=== PATIENT | male | born 1950 | race Caucasian/White ===

== ENCOUNTER → 2016-12-10 | Outpatient (REF) | payer MEDICARE | LOC: M SFHCLERA 12:01 | PROVIDERS: ATTEND Nurse Practitioner Family | DX: R30.0 Dysuria (principal) | CPT/HCPCS: 81002; 87088; 87186; G0463 ==

== ENCOUNTER 2020-12-31 17:50 | Inpatient (IN) | payer MEDICARE ==
[~2020-12-31] VITALS: Ht 170.2 cm; Wt 105.2 kg
[2020-12-31] MEDS ORDERED: ONDANSETRON 4MG/2ML VIAL IV ONE (18:05)
[2020-12-31] MEDS ORDERED: MORPHINE 4 MG/ML 1ML VIAL/SYRINGE (J2270) IV ONE (18:05)
[2020-12-31] MEDS ORDERED: HYDROMORPHONE HCL 0.5 MG/ 0.5 ML SYRINGE (J1170 PER 1) IV ONE ×2 (18:30→20:20)
--- NOTE | 2020-12-31 18:48 | REP ---
INDICATION: blunt trauma. COMPARISON: None. TECHNIQUE: AP supine portable chest x-ray: Single view. FINDINGS: There is an area of pleural thickening along the left lateral chest wall. This implies subpleural hematoma. There is extra thoracic soft tissue swelling along the left lateral chest wall as well and there is a small focus of subcutaneous air in the extra thoracic soft tissues. If the overlying skin is intact, this air implies barotrauma the lungs. No pneumothorax is visible radiographically. There is a transversely oriented fracture involving the left anterior 7th rib. Posterior rib fractures are seen involving the left 5th, ribs. 7th, 8th, 9th, 10th thoracic aorta is calcific and somewhat tortuous. Heart is enlarged. The right lung is well inflated and free of infiltrate. IMPRESSION: Multiple displaced left-sided rib fractures. Subpleural and extra thoracic soft tissue swelling along the left lateral chest wall. Soft tissue emphysema implies barotrauma to the left lung. No pneumothorax visible on plain chest x-ray. <Electronically signed by Alvino Collier > 12/31/20 [id number]
[2020-12-31 18:59] LABS: BASO # 0.1 10^3/uL (0.0-0.2); BASO % 0.6 % (0.0-1.0); EOS # 0.2 10^3/uL (0.0-0.5); EOS % 1.1 % (0.0-3.0); HEMATOCRIT 43.8 % (42.0-52.0); HEMOGLOBIN 14.5 g/dl (13.5-17.5); LYMPH # 3.8 10^3/uL (1.5-5.0); LYMPH % 18.8 % (24.0-44.0); MEAN CORPUSCULAR HEMOGLOBIN 30.3 pg (27.0-33.0); MEAN CORPUSCULAR HGB CONC 33.1 g/dl (32.0-36.5); MEAN CORPUSCULAR VOLUME 91.4 fl (80.0-96.0); MONO # 0.8 10^3/uL (0.0-0.8); NEUTROPHILS # 15.2 10^3/uL (1.5-8.5); NEUTROPHILS % 74.6 % (36.0-66.0); PLATELET COUNT, AUTOMATED 277 10^3/uL (150-450); RED BLOOD COUNT 4.79 10^6/uL (4.30-6.10); WHITE BLOOD COUNT 20.4 10^3/uL (4.0-10.0)
[2020-12-31] MEDS ORDERED: POTA1TAB23 PO ×2 (19:01→20:52)
[2020-12-31] MEDS ORDERED: ASPI81CH33 PO (19:01)
[2020-12-31] MEDS ORDERED: IRBE300T7 PO (19:01)
[2020-12-31] MEDS ORDERED: DILT240C83 PO (19:01)
--- NOTE | 2020-12-31 19:02 | REPVR ---
PROCEDURE INFORMATION: Exam: CT Lumbar Spine Without Contrast Exam date and time: 12/31/2020 6:35 PM Age: 70 years old Clinical indication: Injury or trauma; Fall; Blunt trauma (contusions or hematomas) TECHNIQUE: Imaging protocol: Computed tomography images of the lumbar spine without contrast. Radiation optimization: All CT scans at this facility use at least one of these dose optimization techniques: automated exposure control; mA and/or kV adjustment per patient size (includes targeted exams where dose is matched to clinical indication); or iterative reconstruction. COMPARISON: CT ABD PELVIS W/O CONTRAST 11/27/2014 9:49 AM FINDINGS: Vertebrae: No acute fracture. Normal alignment. L1-L2: Circumferential annulus bulge.. No severe spinal canal stenosis. No significant neural foraminal narrowing. L2-L3: Circumferential annulus bulge.. No severe spinal canal stenosis. No significant neural foraminal narrowing. L3-L4: Large posterior disc osteophyte ridge with impression upon the ventral margin of the thecal sac. Vacuum disc with marginal osteophytes. Moderate to severe central stenosis. Mild to moderate foraminal stenosis on the left. Facet arthropathy on the left.. L4-L5: Large posterior disc osteophyte ridge asymmetric to the left with mass effect upon the ventral margin of the thecal sac and the spinal cord and narrowing of the left lateral recess. Moderate to severe left foraminal stenosis. Mild to moderate right foraminal stenosis. Moderate central stenosis... The L5-S1: Small posterior disc osteophyte ridge.. Mild spinal canal stenosis. No significant neural foraminal narrowing. Soft tissues: Unremarkable. Renal: Multiple calcifications in the left kidney. Single calcification in the mid right kidney. Probable parapelvic cyst in the left kidney (present CT scan dated 11/27/2014). No hydronephrosis in either kidney IMPRESSION: 1. No acute findings. 2. Multilevel degenerative disc disease and facet arthropathy. Multilevel central and foraminal stenosis as described above. 3. Bilateral nonobstructing renal calculi. 4. Parapelvic cysts in the left kidney without change from studies dated back to 2014. Electronically signed by: Erma Dover On 12/31/2020 19:01:55 PM
--- NOTE | 2020-12-31 19:05 | REPVR ---
PROCEDURE INFORMATION: Exam: CT Head Without Contrast Exam date and time: 12/31/2020 6:35 PM Age: 70 years old Clinical indication: Injury or trauma; Fall; Blunt trauma (contusions or hematomas) TECHNIQUE: Imaging protocol: Computed tomography of the head without contrast. Radiation optimization: All CT scans at this facility use at least one of these dose optimization techniques: automated exposure control; mA and/or kV adjustment per patient size (includes targeted exams where dose is matched to clinical indication); or iterative reconstruction. COMPARISON: No relevant prior studies available. FINDINGS: Brain: There is no acute cortical infarction, intracranial hemorrhage or mass. Cerebral ventricles: The ventricles appear mildly enlarged, but not out of proportion to the degree of parenchymal volume loss. Paranasal sinuses: There is no significant mucoperiosteal thickening or air-fluid levels in the visualized portion of the paranasal sinuses. Mastoid air cells: The middle ear cavities and mastoid air cells are clear. Vasculature: Atherosclerosis. Bones/joints: There is a 1 cm lesion right frontal bone series 201, image 15 which may represent pacchionian granulation tissue. No acute fracture. Soft tissues: Unremarkable. IMPRESSION: No acute intracranial findings. Electronically signed by: Rubi Mac On 12/31/2020 19:05:16 PM
[2020-12-31 19:10] LABS: INR 1.06; PROTHROMBIN TIME 14.2 SECONDS (12.7-14.5)
[2020-12-31] MEDS ORDERED: NS 1,000 ML IV ONE (19:10)
[2020-12-31 19:11] LABS: PARTIAL THROMBOPLASTIN TIME 23.6 SECONDS (25.9-37.0)
--- NOTE | 2020-12-31 19:13 | REPVR ---
PROCEDURE INFORMATION: Exam: CT Thoracic Spine Without Contrast Exam date and time: 12/31/2020 6:35 PM Age: 70 years old Clinical indication: Injury or trauma; Fall; Blunt trauma (contusions or hematomas) TECHNIQUE: Imaging protocol: Computed tomography images of the thoracic spine without contrast. Radiation optimization: All CT scans at this facility use at least one of these dose optimization techniques: automated exposure control; mA and/or kV adjustment per patient size (includes targeted exams where dose is matched to clinical indication); or iterative reconstruction. COMPARISON: CT ABD PELVIS W/O CONTRAST 11/27/2014 9:49 AM FINDINGS: Vertebrae: No acute fracture. Normal alignment. T1-T2: No significant disc protrusion. No severe spinal canal stenosis. No significant neural foraminal narrowing. T2-T3: No significant disc protrusion. No severe spinal canal stenosis. No significant neural foraminal narrowing. T3-T4: No significant disc protrusion. No severe spinal canal stenosis. No significant neural foraminal narrowing. T4-T5: Small posterior disc osteophyte ridge.. No severe spinal canal stenosis. No significant neural foraminal narrowing. T5-T6: Small posterior disc osteophyte ridge.. No severe spinal canal stenosis. No significant neural foraminal narrowing. T6-T7: No significant disc protrusion. No severe spinal canal stenosis. No significant neural foraminal narrowing. T7-T8: No significant disc protrusion. No severe spinal canal stenosis. No significant neural foraminal narrowing. T8-T9: Small posterior disc osteophyte ridge.. No severe spinal canal stenosis. No significant neural foraminal narrowing. T9-T10: No significant disc protrusion. No severe spinal canal stenosis. No significant neural foraminal narrowing. T10-T11: No significant disc protrusion. No severe spinal canal stenosis. No significant neural foraminal narrowing. T11-T12: No significant disc protrusion. No severe spinal canal stenosis. No significant neural foraminal narrowing. T12-L1: No significant disc protrusion. No severe spinal canal stenosis. No significant neural foraminal narrowing. Other bones/joints: Ribs: There is a fracture of the left posterior 4th, 5th, 7th, 8 ribs. Lungs: There is a tiny left apical pneumothorax. Small left pleural effusion with subpleural atelectasis in the dependent portion of the left lung. Kidneys and ureters: Kidneys: Bilateral renal calculi. IMPRESSION: 1. 1. No acute findings in the thoracic spine. 2. Tiny left apical pneumothorax. The left lung is not imaged in its entirety. 3. Fractures of the left posterior 4th, 5th, 7th and 8th ribs 4. Bilateral renal calculi. Electronically signed by: Erma Dover On 12/31/2020 19:12:29 PM
--- NOTE | 2020-12-31 19:16 | REPVR ---
PROCEDURE INFORMATION: Exam: CT Cervical Spine Without Contrast Exam date and time: 12/31/2020 6:35 PM Age: 70 years old Clinical indication: Injury or trauma; Fall; Blunt trauma TECHNIQUE: Imaging protocol: Computed tomography images of the cervical spine without contrast. Radiation optimization: All CT scans at this facility use at least one of these dose optimization techniques: automated exposure control; mA and/or kV adjustment per patient size (includes targeted exams where dose is matched to clinical indication); or iterative reconstruction. COMPARISON: No relevant prior studies available. FINDINGS: Bones/joints: Normal alignment. No acute fracture or dislocation. There is diffuse degeneration of the uncovertebral and facet joints with fusion or near fusion at several levels. There is also spina bifida with incomplete closure of the posterior arch at C5 and C6 levels. Discs/Spinal canal/Neural foramina: No significant spinal canal stenosis. There is neural foraminal narrowing associated with degeneration of the uncovertebral and facet joints. Lungs, Pleural spaces: There may be a minimal pneumothorax at the left lung apex and possible contusion posterior aspect of the left upper lobe on most inferior images of the cervical spine study. Soft tissues: Unremarkable. IMPRESSION: 1. Diffuse degeneration in the cervical spine without acute fracture or dislocation. 2. Probable minimal pneumothorax at the left lung apex. Electronically signed by: Rubi Mac On 12/31/2020 19:15:30 PM
[2020-12-31 19:23] LABS: RSV AMPLIFICATION NEGATIVE (NEGATIVE)
--- NOTE | 2020-12-31 19:32 | REPVR ---
PROCEDURE INFORMATION: Exam: CT Abdomen And Pelvis Without Contrast Exam date and time: 12/31/2020 6:35 PM Age: 70 years old Clinical indication: Injury or trauma; Fall; Blunt; Luq; Additional info: Blunt trauma TECHNIQUE: Imaging protocol: Computed tomography of the abdomen and pelvis without contrast. Radiation optimization: All CT scans at this facility use at least one of these dose optimization techniques: automated exposure control; mA and/or kV adjustment per patient size (includes targeted exams where dose is matched to clinical indication); or iterative reconstruction. COMPARISON: CT ABD PELVIS W/O CONTRAST 11/27/2014 9:49 AM FINDINGS: Pleural spaces: Small left pleural effusion. Small left pleural effusion. Pneumothorax at the left lung base. Calcified pleural plaques bilaterally. Liver: Small perihepatic fluid indicating a perihepatic hemorrhage. Gallbladder and bile ducts: Normal. No calcified stones. No ductal dilation. Pancreas: Normal. No ductal dilation. Spleen: Perisplenic fluid of varying densities indicates a perisplenic hematoma. Calcified splenic granulomas. Adrenal glands: Normal. No mass. Kidneys and ureters: Bilateral renal calculi: 3.6 mm calcification mid right kidney, at least 5 calcifications in the left kidney.. Cysts or parapelvic cysts in the mid and lower pole the left kidney. These are probably parapelvic cysts is there are not significantly changed from a CT scan dated 2014. 1.8 cm low-density lesion lower pole right kidney Stomach and bowel: Colonic diverticulosis. Appendix: No evidence of appendicitis. Intraperitoneal space: Unremarkable. No free air. No significant fluid collection. Vasculature: Arteriosclerosis related to the abdominal aorta with no evidence of aneurysm or dissection. Lymph nodes: Unremarkable. No enlarged lymph nodes. Urinary bladder: Unremarkable as visualized. Reproductive: Unremarkable as visualized. Bones/joints: Degenerative changes in the thoracolumbar spine. There are multiple left-sided rib fractures which were described in the chest CT report. Soft tissues: Bilateral inguinal hernias containing fat with no signs of strangulation. Umbilical hernia containing fat measuring 3.8 cm in diameter with no signs of strangulation. IMPRESSION: 1. Small Perisplenic and perihepatic hematomas. The amount of fluid surrounding the spleen is greater than that of the liver 2. Small left pleural effusion with the pneumothorax at the left lung base. 3. Subpleural atelectasis in the left lung. Vague ground-glass densities in the left upper lobe may be related to relative volume loss. Follow-up recommended. 4. Colonic diverticulosis. 5. Umbilical hernia and bilateral inguinal hernias with no signs of strangulation. 6. Bilateral renal calculi. 7. Probable parapelvic cysts lower pole left kidney. Eight. This passes THIS REPORT CONTAINS FINDINGS THAT MAY BE CRITICAL TO PATIENT CARE. The findings were verbally communicated via telephone conference with GEE GRACIA at 7:26 PM EDT on 12/31/2020. The findings were acknowledged and understood. COMMENTS: Consistent with the [employer]'s Incidental Findings Committee white paper (J Am Jose Roberto Radiol 2018): Any incidental renal lesion less than 1 cm or classified as too small to characterize, or any incidental cystic renal lesion characterized as simple-appearing, is likely benign. No follow-up imaging is recommended for these lesions per consensus recommendations based on imaging criteria. Electronically signed by: Erma Dover On 12/31/2020 19:32:24 PM
[2020-12-31 19:47] LABS: ALBUMIN 3.1 GM/DL (3.2-5.2); ALT/SGPT 27 U/L (12-78); AMYLASE 52 U/L (25-115); BILIRUBIN,DIRECT < 0.1 MG/DL (0.0-0.2); BILIRUBIN,TOTAL 0.4 MG/DL (0.2-1.0); BLOOD UREA NITROGEN 20 MG/DL (7-18); CALCIUM LEVEL 7.9 MG/DL (8.8-10.2); CARBON DIOXIDE LEVEL 23 MEQ/L (21-32); CHLORIDE LEVEL 113 MEQ/L (98-107); CK-MB VALUE MASS 6.4 NG/ML (<3.6); CPK CREATINE PHOSPHOKINASE 327 U/L (39-308); CREATININE FOR GFR 1.05 MG/DL (0.70-1.30); ETHYL ALCOHOL (ETHANOL) < 0.003 % (0.000-0.010); GLOMERULAR FILTRATION RATE > 60.0 (>42); GLUCOSE, FASTING 161 MG/DL (70-100); LIPASE 263 U/L (73-393); MB/CK RELATIVE INDEX 1.96 (< OR =4); POTASSIUM SERUM 3.8 MEQ/L (3.5-5.1); SODIUM LEVEL 144 MEQ/L (136-145); TOTAL PROTEIN 5.5 GM/DL (6.4-8.2); TROPONIN I < 0.02 NG/ML (< 0.10)
[2020-12-31] MEDS ORDERED: ONDANSETRON 4MG/2ML VIAL IV PRN ×2 (20:20→22:10)
[2020-12-31] MEDS ORDERED: MORPHINE 2 MG/ML 1ML VIAL (J2270) IV PRN (20:20)
[2020-12-31] MEDS ORDERED: METOCLOPRAMIDE INJ 10MG/2ML VIAL (J2765 PER 1) IV PRN ×2 (20:20→22:10)
[2020-12-31] MEDS ORDERED: ASPI-161 PO (20:50)
[2020-12-31] MEDS ORDERED: MULTCHW12 PO (20:52)
[2020-12-31] MEDS ORDERED: PANT40TA29 PO (20:52)
[2020-12-31] MEDS ORDERED: METO25TA4 PO (20:52)
[2020-12-31] MEDS ORDERED: HOME MED LIST COMPLETE! XX SCH (20:55)
[2020-12-31] MEDS: METOPROLOL TART 25 MG TABLET PO SCH (21:00)
[2020-12-31] MEDS ORDERED: MIDAZOLAM INJ 2MG/2ML VIAL (J2250 PER 1MG) As Ordered ONE (21:02)
[2020-12-31] MEDS ORDERED: LIDOCAINE 1% MDV 20ML VIAL As Ordered ONE (21:02)
[2020-12-31] MEDS ORDERED: fentaNYL 100 MCG/2 ML INJECTION (J3010) As Ordered ONE (21:02)
[2020-12-31] MEDS ORDERED: FENTANYL 2MCG/ML BUPIVACAINE 0.0625% NACL 250ML IV BAG As Ordered ONE (21:10)
[2020-12-31] MEDS: LR 1,000 ML IV SCH ×3 (21:37→23:09)
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
[2020-12-31] MEDS ORDERED: EPIDURAL/PCA KEYS XX PRN (22:10)
[2020-12-31] MEDS ORDERED: WALLBOXKEY XX PRN (22:10)
[2020-12-31] MEDS ORDERED: MIDAZOLAM INJ 2MG/2ML VIAL (J2250 PER 1MG) IV ONE (22:10)
[2020-12-31] MEDS: FENTANYL/BUPIVACAINE/NACL BAG 250 ML EPIDURAL SCH (22:10)
[2020-12-31] MEDS ORDERED: fentaNYL 100 MCG/2 ML INJECTION (J3010) IV ONE (22:10)
[2020-12-31] MEDS ORDERED: NALOXONE INJ 0.4MG/1ML VIAL (J2310 PER 1MG) IV PRN (22:10)
[2020-12-31 23:00] VITALS: BP 103/55
[2020-12-31] MEDS: SENOKOT S TAB PO SCH (23:08)
[2020-12-31] MEDS: KETOROLAC 30 MG/ML 1ML VIAL IV SCH (23:08)
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
[2021-01-01] VITALS (7 sets, daily range): BP systolic 97–174; BP diastolic 58–79
[2021-01-01] MEDS: BACITRACIN OINTMENT 30GM TUBE TOP SCH ×3 (01:26→20:19)
[2021-01-01 04:30] LABS: BASO % 0.2 % (0.0-1.0); LYMPH # 1.4 10^3/uL (1.5-5.0); LYMPH % 11.9 % (24.0-44.0); MEAN CORPUSCULAR HEMOGLOBIN 30.5 pg (27.0-33.0); MEAN CORPUSCULAR HGB CONC 32.4 g/dl (32.0-36.5); MEAN CORPUSCULAR VOLUME 94.1 fl (80.0-96.0); MONO # 0.6 10^3/uL (0.0-0.8); MONO % 4.9 % (2.0-8.0); NEUTROPHILS # 9.4 10^3/uL (1.5-8.5); NEUTROPHILS % 82.5 % (36.0-66.0); PLATELET COUNT, AUTOMATED 198 10^3/uL (150-450); RED BLOOD COUNT 3.93 10^6/uL (4.30-6.10); WHITE BLOOD COUNT 11.4 10^3/uL (4.0-10.0)
[2021-01-01] MEDS: KETOROLAC 30 MG/ML 1ML VIAL IV SCH ×4 (04:45→20:18)
[2021-01-01] MEDS: LR 1,000 ML IV SCH ×2 (04:46→10:17)
[2021-01-01 05:09] LABS: ALBUMIN 3.1 GM/DL (3.2-5.2); BILIRUBIN,TOTAL 0.4 MG/DL (0.2-1.0); CALCIUM LEVEL 8.4 MG/DL (8.8-10.2); CREATININE FOR GFR 1.28 MG/DL (0.70-1.30); GLOMERULAR FILTRATION RATE 59.1 (>42); POTASSIUM SERUM 4.7 MEQ/L (3.5-5.1); TOTAL PROTEIN 5.4 GM/DL (6.4-8.2)
[2021-01-01 07:47] LABS: APPEARANCE, URINE HAZY (CLEAR); BACTERIA, URINE AUTO NEGATIVE (NEGATIVE); BILIRUBIN, URINE AUTO NEGATIVE (NEGATIVE); BLOOD, URINE BLOOD 2+ (NEGATIVE); COLOR, URINE YELLOW (YELLOW); GLUCOSE, URINE (UA) AUTO NEGATIVE (NEGATIVE); KETONE, URINE AUTO NEGATIVE (NEGATIVE); LEUKOCYTE ESTERASE, URINE AUTO NEGATIVE (NEGATIVE); MUCUS, URINE SMALL (NEGATIVE); NITRITE, URINE AUTO NEGATIVE (NEGATIVE); PROTEIN, URINE AUTO 1+ mg/dL (NEGATIVE); RBC, URINE AUTO 35 /HPF (0-3); SPECIFIC GRAVITY URINE AUTO 1.023 (1.002-1.035); SQUAMOUS EPITHELIAL CELL UR AU 1 /HPF (0-6); UROBILINOGEN, URINE AUTO 0.2 mg/dL (0.0-2.0); WBC, URINE AUTO 2 /HPF (0-3)
[2021-01-01 08:02] LABS: AMPHETAMINES LEVEL URINE NEGATIVE (NEGATIVE); BARBITURATES URINE NEGATIVE (NEGATIVE); BENZODIAZEPINES URINE POSITIVE (NEGATIVE); CANNABINOIDS URINE NEGATIVE (NEGATIVE); COCAINE METABOLITE URINE NEGATIVE (NEGATIVE); METHADONE URINE NEGATIVE (NEGATIVE); OPIATES URINE POSITIVE (NEGATIVE); PHENCYCLIDINE URINE NEGATIVE (NEGATIVE)
--- NOTE | 2021-01-01 08:02 | REP ---
INDICATION: follow left pneumothorax. COMPARISON: Comparison chest x-ray December 31, 2020. TECHNIQUE: Portable upright AP chest radiograph. FINDINGS: Multiple left posterior rib fractures are again seen. Epidural catheter is noted in place. Subcutaneous emphysema is seen along the left lateral chest wall and there is pleural thickening along the left lateral chest wall. Right lung remains clear. There is no discernible pneumothorax on upright AP portable chest radiograph. Cardiomediastinal silhouette is unchanged. IMPRESSION: Multiple left rib fractures with pleural thickening and extra thoracic soft tissue emphysema on the left. Epidural catheter in place. <Electronically signed by Alvino Collier > 01/01/21 [id number]
[2021-01-01] MEDS: METOPROLOL TART 25 MG TABLET PO SCH ×3 (09:00→20:17)
[2021-01-01] MEDS: SENOKOT S TAB PO SCH ×2 (09:00→20:15)
[2021-01-01] MEDS ORDERED: FLUBLOK(EGG FREE)(QUAD)INFLUENZA VACC 0.5ML SYRINGE 18YRS & OLDER IM ONE (09:00)
--- NOTE | 2021-01-01 13:57 | IPNPDOC ---
Text Note Date of Service The patient was seen on 01/01/21. NOTE General surgery. Dr. Wang The patient is a 70-year-old male who had been loading a bull into a trailer when it knocked him down and rolled him on the ground. The patient sustained multiple left-sided rib fractures 4 through 10, small splenic laceration, left hemopneumothorax and possible small liver laceration. This morning, the patient is resting in bed talking on the phone. He states pain is reasonably controlled but he does have increased pain with movement. Breath ing is comfortable currently. Currently has epidural for pain as per anesthesia. Temperature 98.3, heart rate 56, respiratory rate 19, blood pressure 136/75, 96% 3 L nasal cannula. The patient is awake and alert resting comfortably in bed currently, talking on the phone. MMM Lungs with good air entry on the right, decreased breath sounds on the left, the patient is splinting the left side of his chest with a folded towel. S1-S2 regular rate rhythm. Abdomen. Soft, nontender, nondistended. Ventral hernia is noted, no discoloration or tenderness. Extremities. The feet are warm, no edema. WBC 11.4, this is decreased from 20.4 on admission. Hemoglobin 12.0, 14.5 on admission. Assessment/plan Multiple left sided rib fractures with displacement. Left hemopneumothorax.Perisplenic hematoma consistent with splenic laceration. Perihepatic fluid consistent with limited hepatic laceration. The patient is reviewed as per Dr. Wang. Pain is reasonably controlled, epidural as per anesthesia. Continue to encourage deep breathing, incentive spirometry. Currently NPO IVF at 125cc/hr. Hemoglobin 12.0 compared with 14.5 on admission. Will recheck CBC in a.m. Continue to closely monitor. Abrasion right lower leg. Small laceration bridge of nose. Continue to keep these areas clean and dry, bacitracin as needed. CAD/history of [place]. Metoprolol 25 mg twice daily. ASA on hold Hypertension. Diltiazem/irbesartan on hold. BP 121/58 DVT prophylaxis. SCD/teds. No pharmacologic DVT prophylaxis at this time related to potential for bleeding. VS,Fishbone, I+O VS, Fishbone, I+O Laboratory Tests 12/31/20 18:35 01/01/21 03:48 Vital Signs Date Time Temp Pulse Resp B/P (MAP) Pulse Ox O2 Delivery O2 Flow Rate FiO2 01/01/21 12:00 2.0 01/01/21 11:47 98.4 56 20 121/58 (79) 97 Nasal Cannula I&O- Last 24 Hours up to 6 AM 01/01/21 06:00 Intake Total 1810 ml Balance 1810 ml Attending Note Attending Note I agree with note by Thuy. Patient vitals stable. Epidural placed last pm and seems much more comfortable. CXR last pm and this am with no increase in air in chest or chest wall. Abd - soft, no sig tenderness, +BS. HCT down slightly only. Imp: Stable. No sign of abd bleeding. Plan: OOB, clears, SL IV if liquids terese., PT consult, Pulm toilette. Thuy Mcdermott Jan 01, 2021 13:57 Nithin Wang Jan 01, 2021 21:11
[2021-01-01] MEDS: oxyCODONE 5MG TAB PO PRN ×2 (16:13→20:19)
[2021-01-01] MEDS: FENTANYL/BUPIVACAINE/NACL BAG 250 ML EPIDURAL SCH (22:50)
[2021-01-02] VITALS: BP 118/57
[2021-01-02] MEDS: KETOROLAC 30 MG/ML 1ML VIAL IV SCH ×4 (03:59→20:14)
[2021-01-02 04:00] VITALS: BP 142/86
[2021-01-02 04:06] LABS: BASO # 0.1 10^3/uL (0.0-0.2); BASO % 0.7 % (0.0-1.0); EOS # 0.3 10^3/uL (0.0-0.5); EOS % 2.5 % (0.0-3.0); HEMATOCRIT 34.1 % (42.0-52.0); HEMOGLOBIN 10.9 g/dl (13.5-17.5); LYMPH # 2.5 10^3/uL (1.5-5.0); LYMPH % 23.8 % (24.0-44.0); MEAN CORPUSCULAR HEMOGLOBIN 30.6 pg (27.0-33.0); MEAN CORPUSCULAR VOLUME 95.8 fl (80.0-96.0); MONO # 0.8 10^3/uL (0.0-0.8); MONO % 7.9 % (2.0-8.0); NEUTROPHILS # 6.8 10^3/uL (1.5-8.5); NEUTROPHILS % 64.7 % (36.0-66.0); PLATELET COUNT, AUTOMATED 144 10^3/uL (150-450); RED BLOOD COUNT 3.56 10^6/uL (4.30-6.10); WHITE BLOOD COUNT 10.5 10^3/uL (4.0-10.0)
--- NOTE | 2021-01-02 08:29 | REP ---
INDICATION: follow hemopneumothorax. COMPARISON: Multiple the latest 12/31/2020 at 10:57 p.m. TECHNIQUE: Portable FINDINGS: The technique utilized in obtaining the radiograph has magnified the cardiac silhouette and accentuated the interstitial markings. The cardiomediastinal silhouette lung allen are unchanged. There is no significant change in appearance of the osseous structures. There are multiple left-sided rib fractures status quo. IMPRESSION: No significant change from the latest prior exam. <Electronically signed by Michael Moore > 01/02/21 [id number]
[2021-01-02] MEDS: oxyCODONE 5MG TAB PO PRN (08:43)
[2021-01-02] MEDS: METOPROLOL TART 25 MG TABLET PO SCH ×2 (08:45→20:15)
[2021-01-02] MEDS: SENOKOT S TAB PO SCH ×2 (08:45→20:15)
[2021-01-02] MEDS: BACITRACIN OINTMENT 30GM TUBE TOP SCH ×2 (08:45→20:15)
--- NOTE | 2021-01-02 10:22 | IPNPDOC ---
Text Note Date of Service The patient was seen on 01/02/21. NOTE General surgery. Dr. Wang The patient is a 70-year-old male who had been loading a bull into a trailer when it knocked him down and rolled him on the ground. The patient sustained multiple left-sided rib fractures 4 through 10, small splenic laceration, left hemopneumothorax and possible small liver laceration. This morning, the patient is OOB to the chair. He states pain is reasonably controlled with epidural. Has used an extra dose of Toradol and oxycodone this morning. Breathing is comfortable currently. Tolerating clear liquids Temperature 98.7, heart rate 70, respiratory rate 18, blood pressure 142/86, 95% with supplemental O2. The patient is awake and alert, sitting in the chair MMM Lungs with good air entry on the right, decreased breath sounds on the left with some inspiratory rales noted, the patient is splinting the left side of his chest with a folded towel. S1-S2 regular rate rhythm. Abdomen. Soft, nontender, nondistended. Ventral hernia is noted, no discoloration or tenderness. Extremities. The feet are warm, no edema. WBC 10.5, continues to downtrend Hemoglobin 10.9 compared with 12.0 yesterday. Assessment/plan Multiple left sided rib fractures with displacement. Left hemopneumothorax.Perisplenic hematoma consistent with splenic laceration. Perihepatic fluid consistent with limited hepatic laceration. The patient is reviewed as per Dr. Wang. Pain is reasonably controlled, epidural as per anesthesia. Chest x-ray this morning no significant change from prior exam. Continue to encourage deep breathing, incentive spirometry. Continue to encourage out of bed We will advance to regular diet Hemoglobin 10.9 this morning compared with 12.0 yesterday. Hematocrit 34.1, 37.0 yesterday. Physical therapy pending. Continue to closely monitor. Abrasion right lower leg. Small laceration bridge of nose. Continue to keep these areas clean and dry, bacitracin as needed. CAD/history of [place]. Metoprolol 25 mg twice daily. ASA on hold Hypertension. Diltiazem/irbesartan on hold. BP 734112/5786 DVT prophylaxis. SCD/teds. No pharmacologic DVT prophylaxis at this time related to potential for bleeding. VS,Fishbone, I+O VS, Fishbone, I+O Laboratory Tests 01/02/21 03:23 Vital Signs Date Time Temp Pulse Resp B/P (MAP) Pulse Ox O2 Delivery O2 Flow Rate FiO2 01/02/21 09:13 16 01/02/21 08:45 62 156/76 01/02/21 04:00 1.0 01/02/21 04:00 98.7 95 Nasal Cannula I&O- Last 24 Hours up to 6 AM 01/02/21 05:59 Intake Total 1610 ml Output Total 660 ml Balance 950 ml Attending Note Attending Note Patient seen late morning of 01/02. Overall doing well. Has been OOB. Voiding well. Fairly comfortable at rest PEx- Heart RRR. Lungs with good BS on right and diminished sounds on left. Has some paradoxical motion of left lateral chest wall with inspiration. Abd mildly distended and soft. Active BS. CXR about the same. Imp - doing well with epidural Plan - Continue epidural through the weekend. Reg diet. Resp toilette. Follow HCT. Continue to hold other BP meds for now. Thuy Mcdermott Jan 02, 2021 10:22 Nithin Wang Jan 03, 2021 00:35
[2021-01-02 10:48] VITALS: BP 131/64
[2021-01-02 12:00] VITALS: BP 129/58
[2021-01-02 16:00] VITALS: BP 161/79
[2021-01-02 20:00] VITALS: BP 157/68
[2021-01-02] MEDS: MOM 30ML SUSPENSION UDC PO PRN (20:46)
[2021-01-03] VITALS (7 sets, daily range): BP systolic 140–163; BP diastolic 70–82
[2021-01-03] MEDS: FENTANYL/BUPIVACAINE/NACL BAG 250 ML EPIDURAL SCH (00:09)
[2021-01-03] MEDS: oxyCODONE 5MG TAB PO PRN ×3 (00:54→17:54)
[2021-01-03] MEDS: KETOROLAC 30 MG/ML 1ML VIAL IV SCH ×4 (03:44→20:22)
[2021-01-03] MEDS: SENOKOT S TAB PO SCH ×2 (08:41→20:17)
[2021-01-03] MEDS: METOPROLOL TART 25 MG TABLET PO SCH ×2 (08:41→20:22)
[2021-01-03] MEDS: BACITRACIN OINTMENT 30GM TUBE TOP SCH ×2 (08:42→20:22)
--- NOTE | 2021-01-03 09:44 | IPNPDOC ---
Text Note Date of Service The patient was seen on 01/03/21. NOTE No acute events overnight. He is sitting in significant pain holding his chest this am after walking around the room. Overall, he says that it hurts to move, but he does feel improvement daily. VSSAF NAD lungs - dec. breath sounds b/l pain to palpation over the rib cage. abd - soft, nt, nd A) 70y/o male s/p blunt chest trauma secondary to large bull, with multiple displaced rib fractures P) reg diet amb PT pain control w/ epidural will d/c epidural once the pain improves Winston Garcia DO VS,Fishbone, I+O VS, Fishbone, I+O Vital Signs Date Time Temp Pulse Resp B/P (MAP) Pulse Ox O2 Delivery O2 Flow Rate FiO2 01/03/21 08:41 59 148/78 01/03/21 08:41 16 Room Air 01/03/21 08:00 97.0 96 1.0 I&O- Last 24 Hours up to 6 AM 01/03/21 06:00 Intake Total 2900 ml Output Total 0 ml Balance 2900 ml SERGIO GARCIA DO Jan 03, 2021 09:44
[2021-01-04] VITALS: BP 142/80
[2021-01-04] MEDS: FENTANYL/BUPIVACAINE/NACL BAG 250 ML EPIDURAL SCH (00:19)
[2021-01-04] MEDS: oxyCODONE 5MG TAB PO PRN ×3 (00:54→16:35)
[2021-01-04] MEDS: KETOROLAC 30 MG/ML 1ML VIAL IV SCH ×4 (03:28→20:30)
[2021-01-04 04:10] VITALS: BP 160/80
[2021-01-04 08:00] VITALS: BP 175/80
--- NOTE | 2021-01-04 08:38 | IPNPDOC ---
Text Note Date of Service The patient was seen on 01/04/21. NOTE No acute events overnight. He was up walking in the halls overnight and feels like his pain is still improving. VSSAF NAD lungs - dec. breath sounds b/l pain to palpation over the rib cage. abd - soft, nt, nd A) 70y/o male s/p blunt chest trauma secondary to large bull, with multiple displaced rib fractures P) reg diet amb PT wean pain control w/ epidural transition to PO pain meds tomorrow will d/c epidural once the pain improves Winston Garcia DO VS,Fishbone, I+O VS, Fishbone, I+O Vital Signs Date Time Temp Pulse Resp B/P (MAP) Pulse Ox O2 Delivery O2 Flow Rate FiO2 01/04/21 08:00 97.3 67 20 175/80 (111) 96 Nasal Cannula 1.0 I&O- Last 24 Hours up to 6 AM 01/04/21 06:00 Intake Total 2009 ml Balance 2009 ml SERGIO GARCIA DO Jan 04, 2021 08:38
[2021-01-04] MEDS: BACITRACIN OINTMENT 30GM TUBE TOP SCH ×2 (08:39→20:31)
[2021-01-04] MEDS: SENOKOT S TAB PO SCH ×2 (08:39→20:31)
[2021-01-04] MEDS: METOPROLOL TART 25 MG TABLET PO SCH ×2 (08:39→20:31)
[2021-01-04] MEDS ORDERED: FENTANYL/BUPIVACAINE/NACL BAG 250 ML EPIDURAL SCH (09:40)
[2021-01-04 12:00] VITALS: BP 167/81
[2021-01-04] MEDS: MOM 30ML SUSPENSION UDC PO PRN (15:40)
[2021-01-04 16:00] VITALS: BP 166/80
[2021-01-04] MEDS: ACETAMINOPHEN TAB 650MG DOSE (2X325MG) PO PRN (18:35)
[2021-01-04 20:00] VITALS: BP 177/81
[2021-01-05] VITALS (21 sets, daily range): BP systolic 138–161; BP diastolic 70–80; O2SAT 74–97
[2021-01-05] MEDS: oxyCODONE 5MG TAB PO PRN ×4 (00:13→22:46)
[2021-01-05] MEDS: FENTANYL/BUPIVACAINE/NACL BAG 250 ML EPIDURAL SCH (00:16)
[2021-01-05] MEDS: ACETAMINOPHEN TAB 650MG DOSE (2X325MG) PO PRN ×3 (02:07→20:12)
[2021-01-05] MEDS: KETOROLAC 30 MG/ML 1ML VIAL IV SCH (03:15)
[2021-01-05 05:46] LABS: BASO # 0.1 10^3/uL (0.0-0.2); BASO % 1.1 % (0.0-1.0); EOS # 0.7 10^3/uL (0.0-0.5); EOS % 7.4 % (0.0-3.0); HEMATOCRIT 32.4 % (42.0-52.0); HEMOGLOBIN 10.7 g/dl (13.5-17.5); LYMPH # 2.3 10^3/uL (1.5-5.0); LYMPH % 25.2 % (24.0-44.0); MEAN CORPUSCULAR HEMOGLOBIN 30.4 pg (27.0-33.0); MONO # 0.7 10^3/uL (0.0-0.8); MONO % 7.8 % (2.0-8.0); NEUTROPHILS # 5.1 10^3/uL (1.5-8.5); NEUTROPHILS % 57.5 % (36.0-66.0); PLATELET COUNT, AUTOMATED 165 10^3/uL (150-450); RED BLOOD COUNT 3.52 10^6/uL (4.30-6.10); WHITE BLOOD COUNT 8.9 10^3/uL (4.0-10.0)
[2021-01-05 06:08] LABS: BLOOD UREA NITROGEN 13 MG/DL (7-18); CALCIUM LEVEL 7.9 MG/DL (8.8-10.2); CARBON DIOXIDE LEVEL 29 MEQ/L (21-32); CHLORIDE LEVEL 103 MEQ/L (98-107); CREATININE FOR GFR 0.73 MG/DL (0.70-1.30); GLOMERULAR FILTRATION RATE > 60.0 (>42); GLUCOSE, FASTING 118 MG/DL (70-100); POTASSIUM SERUM 4.2 MEQ/L (3.5-5.1); SODIUM LEVEL 137 MEQ/L (136-145)
[2021-01-05] MEDS: SENOKOT S TAB PO SCH ×2 (08:50→20:13)
[2021-01-05] MEDS: METOPROLOL TART 25 MG TABLET PO SCH ×2 (08:50→20:13)
[2021-01-05] MEDS: BACITRACIN OINTMENT 30GM TUBE TOP SCH ×2 (08:54→20:13)
--- NOTE | 2021-01-05 09:09 | IPNPDOC ---
Text Note Date of Service The patient was seen on 01/05/21. NOTE General surgery. Dr. Wang The patient is a 70-year-old male who had been loading a bull into a trailer when it knocked him down and rolled him on the ground. The patient sustained multiple left-sided rib fractures 4 through 10, small splenic laceration, left hemopneumothorax and possible small liver laceration. This morning, the patient is still in bed. States he was out of bed to the chair yesterday. Reports pain is reasonably controlled. His epidural was decreased yesterday. Tolerating regular diet. BM last night. Afebrile. VSS. The patient is awake and alert, resting in bed MMM Lungs with good air entry on the right, decreased breath sounds on the left with some inspiratory rales noted, the patient is splinting the left side of his chest with a folded towel. S1-S2 regular rate rhythm. Abdomen. Soft, nontender, nondistended. Ventral hernia is noted, no discoloration or tenderness. Extremities. The feet are warm, no edema. WBC 8.9 this morning. Hemoglobin 10.7, which is stable from 10.9 01/02/2021. Assessment/plan Multiple left sided rib fractures with displacement. Left hemopneumothorax.Perisplenic hematoma consistent with splenic laceration. Perihepatic fluid consistent with limited hepatic laceration. The patient is reviewed as per Dr. Wang. Pain is reasonably controlled, epidural was decreased yesterday. Has not been out of bed yet today. He has used 2 doses of oxycodone 5 mg so far today. Continue to encourage deep breathing, incentive spirometry. Continue to encourage out of bed Hemoglobin 10.7 Continue physical therapy. Abrasion right lower leg. Small laceration bridge of nose. Continue to keep these areas clean and dry, bacitracin as needed. CAD/history of [place]. Metoprolol 25 mg twice daily. ASA restarted Hypertension. Diltiazem/irbesartan restarted this AM DVT prophylaxis. SCD/teds. VS,Fishbone, I+O VS, Fishbone, I+O Laboratory Tests 01/05/21 05:16 Vital Signs Date Time Temp Pulse Resp B/P (MAP) Pulse Ox O2 Delivery O2 Flow Rate FiO2 01/05/21 07:45 20 Nasal Cannula 2.0 01/05/21 07:13 97.6 63 150/73 (64) 96 I&O- Last 24 Hours up to 6 AM 01/05/21 06:00 Intake Total 1680 ml Output Total 725 ml Balance 955 ml Thuy Mcdermott Jan 05, 2021 09:09
[2021-01-05] MEDS: PANTOPRAZOLE 40MG TAB (PROTONIX) PO SCH (09:55)
[2021-01-05] MEDS: IRBESARTAN 150MG TAB PO SCH (09:56)
[2021-01-05] MEDS: ASPIRIN 81MG ENTERIC TABLET PO SCH (09:56)
[2021-01-05] MEDS ORDERED: oxyCODONE 5MG TAB PO ONE (15:15)
[2021-01-05] MEDS: IBUPROFEN 600MG TAB PO PRN (18:59)
[2021-01-06] VITALS (12 sets, daily range): BP systolic 115–159; BP diastolic 62–76; O2SAT 90–96
[2021-01-06] MEDS: ACETAMINOPHEN TAB 650MG DOSE (2X325MG) PO PRN ×2 (01:59→06:54)
[2021-01-06] MEDS: oxyCODONE 5MG TAB PO PRN ×2 (04:17→11:08)
--- NOTE | 2021-01-06 07:02 | IPN ---
PROGRESS NOTE DATE: 01/05/2021 SUBJECTIVE: Patient is a 70-year-old man who was knocked down and rolled by a bull he was trying to load into a trailer. He suffered multiple left rib fractures with a small pneumohemothorax on the left. There were small collections of fluid around the liver and spleen suggesting small splenic and liver lacerations. He was admitted on the . His pain has been managed over the last five days using an epidural catheter. This was decreased yesterday. He has been using small doses of Oxycodone as well for pain. He has been tolerating a diet well. He has been having bowel movements and voiding without difficulty. He does have discomfort still when he moves about. Vital signs shows a T-max over the last 24 hours of 98.6. His pulse is in the 60s generally. Blood pressure has crept up slightly and he has had systolic blood pressures between 138 and 177. Intake and output shows that yesterday he had 1700 ml in with 725 ml out. I do note that his weight has gone up somewhat during the time course of his epidural. OBJECTIVE: The patient is sitting up at the bedside in a chair. His epidural was removed approximately an hour ago by __ after we had talked. The patient is alert and oriented. He does have occasional spasms of pain in his chest which he is splinting somewhat with a folded blanket. He appears to be breathing fairly easily between these episodes of pain. Heart exam shows a regular rhythm. Lungs show still decreased breath sounds relative to the right. The abdomen is mildly protuberant. He has bowel sounds present but the abdomen is soft. He has some mild pitting edema in his lower extremities bilaterally at least below the knee. He has some bruising on the right thigh. LABORATORY DATA: Laboratory studies today shows a white count of 9, hemoglobin of 11, hematocrit 32 and a platelet count of 165,000. His differential count shows 58% neutrophils, 25% lymphocytes and 8% monocytes. Chemistry profile showed a sodium of 137, potassium of 4.2, chloride 103, CO2 29, BUN 13, creatinine of 0.7 and a glucose of 118. He has no new x-rays today. IMPRESSION: Multiple injuries secondary to an attack by a bull. He appears to be making progress. He is tolerating a diet and having regular and bowel and bladder function. He appears to be breathing well at rest. With movement, he does have significant pain in his chest and now that his epidural has been removed he seems to be having more spasms of pain the chest wall. PLAN: Patient's pain medications will be adjusted. I will change him from 5 mg of oxycodone every 4 hours to 10 mg every 6 hours as needed. I will start him on some Ibuprofen 600 mg p.o. q. 6 hours as needed as well. He will have plain Tylenol available for fever or mild pain. He is encouraged to continue with ambulation and can take a regular diet. We will monitor him over the next day or so to see if he will be comfortable enough for discharge. I will resume his usual dosing of Cardizem CD, Protonix, Irbesartan and his daily aspirin. I will order a PA and lateral chest x-ray for tomorrow down in the x-ray department.
--- NOTE | 2021-01-06 09:26 | REP ---
INDICATION: follow up rib fractures, hemothorax. COMPARISON: Comparison chest x-ray January 02, 2021. TECHNIQUE: Two views.. FINDINGS: Frontal and lateral views of the chest demonstrate increase in left pleural effusion opacifying the lower half of the left hemithorax. The soft tissue emphysema seen previously in the extra thoracic soft tissues is improved although not resolved. There is no visible pneumothorax. There is platelike atelectasis in the right lower lobe posteriorly. The right lung is otherwise clear. No right pleural effusion is noted. There are degenerative changes in the thoracic spine. The thoracic aorta is calcified. IMPRESSION: Increase, now moderate left pleural effusion evident. <Electronically signed by Alvino Collier > 01/06/21 [id number]
[2021-01-06] MEDS: ASPIRIN 81MG ENTERIC TABLET PO SCH (09:32)
[2021-01-06] MEDS: SENOKOT S TAB PO SCH (09:32)
[2021-01-06] MEDS: METOPROLOL TART 25 MG TABLET PO SCH (09:32)
[2021-01-06] MEDS: IRBESARTAN 150MG TAB PO SCH (09:32)
[2021-01-06] MEDS: PANTOPRAZOLE 40MG TAB (PROTONIX) PO SCH (09:32)
[2021-01-06] MEDS: BACITRACIN OINTMENT 30GM TUBE TOP SCH (09:33)
[2021-01-06] MEDS: IBUPROFEN 600MG TAB PO PRN (09:35)
[2021-01-06] MEDS ORDERED: SENN-52 PO (14:40)
[2021-01-06] MEDS ORDERED: MOM30SS2 PO (14:40)
[2021-01-06] MEDS ORDERED: OXYC-517 PO ×2 (14:40→14:49)
--- NOTE | 2021-01-06 15:11 | DS.PDOC ---
Discharge Summary General Date of Admission Dec 31, 2020 at 20:16 Date of Discharge 01/06/2021 Discharge Summary General surgery. Dr. Wang ADMITTING DIAGNOSES: Multiple left sided rib fractures with displacement. Left hemopneumothorax.Perisplenic hematoma consistent with splenic laceration. Perihepatic fluid consistent with limited hepatic laceration. HTN CAD/cardiac stents Dyslipidemia History of kidney stones GERD BMI 36.3 DISCHARGE DIAGNOSES: Multiple left sided rib fractures with displacement. Left hemopneumothorax.Perisplenic hematoma consistent with splenic laceration. Perihepatic fluid consistent with limited hepatic laceration. HTN CAD/cardiac stents Dyslipidemia History of kidney stones GERD BMI 36.3 HISTORY OF PRESENT ILLNESS: The patient is a 70-year-old male who had been loading a bull into a trailer when it knocked him down and rolled him on the ground. The patient sustained multiple left-sided rib fractures 4 through 10, small splenic laceration, left hemopneumothorax and possible small liver laceration. HOSPITAL COURSE: The patient was admitted to PCU and initially placed on epidural for pain control. Physical therapy was requested. Incentive spirometry requested. Serial hemoglobin was monitored. 01/02 the patient's hemoglobin was noted to be 10.9 compared with 14.5 on admission. This however remained stable and by 01/05 was 10.7. The patient's epidural was decreased 01/04 and subsequently discontinued 01/05. The patient was resumed on his outpatient regimen of diltiazem, Avapro, and Lopressor. The patient was seen 01/06/2021 and was felt stable for discharge. Follow-up chest x-ray was completed 01/06 and reviewed as per Dr. Wang. The patient has remained afebrile throughout his stay. Tolerating regular diet. Reports bowel movement yesterday. Cleared by physical therapy 01/06 for discharge. The patient was felt stable for discharge, and the patient felt ready for discharge, reporting his pain was reasonably controlled. Discharge was arranged. DISCHARGE MEDICATIONS: Please see below. ALLERGIES: Please see below. PHYSICAL EXAMINATION ON DISCHARGE: VITAL SIGNS: Please see below. GENERAL: No acute distress, sitting in chair HEENT: MMM CARDIOVASCULAR EXAMINATION: S1-S2 regular rate rhythm RESPIRATORY EXAMINATION: Good air entry right lung allen, a few inspiratory rales at the left base with decreased breath sounds. ABDOMINAL EXAMINATION: Soft, nontender EXTREMITIES: No edema LABORATORY DATA: Please see below. IMAGIN/22 CT abdomen/pelvis IMPRESSION: 1. Small Perisplenic and perihepatic hematomas. The amount of fluid surrounding the spleen is greater than that of the liver 2. Small left pleural effusion with the pneumothorax at the left lung base. 3. Subpleural atelectasis in the left lung. Vague ground-glass densities in the left upper lobe may be related to relative volume loss. Follow-up recommended. 4. Colonic diverticulosis. 5. Umbilical hernia and bilateral inguinal hernias with no signs of strangulation. CT C Spine IMPRESSION: 1. Diffuse degeneration in the cervical spine without acute fracture or dislocation. 2. Probable minimal pneumothorax at the left lung apex. Electronically signed by: Rubi Mac On 12/31/2020 19:15:[address] Chest IMPRESSION: 1. Small Perisplenic and perihepatic hematomas. The amount of fluid surrounding the spleen is greater than that of the liver 2. Small left pleural effusion with the pneumothorax at the left lung base. 3. Subpleural atelectasis in the left lung. Vague ground-glass densities in the left upper lobe may be related to relative volume loss. Follow-up recommended. 4. Colonic diverticulosis. 5. Umbilical hernia and bilateral inguinal hernias with no signs of strangulation. 6. Bilateral renal calculi. 7. Probable parapelvic cysts lower pole left kidney. CTH IMPRESSION: No acute intracranial findings. Electronically signed by: Rubi Mac On 12/31/2020 19:05:[address] :S spine IMPRESSION: 1. No acute findings. 2. Multilevel degenerative disc disease and facet arthropathy. Multilevel central and foraminal stenosis as described above. 3. Bilateral nonobstructing renal calculi. 4. Parapelvic cysts in the left kidney without change from studies dated back to 2014. Electronically signed by: Erma Dover On 12/31/2020 19:01:[address] Thoracis spine IMPRESSION: 1. 1. No acute findings in the thoracic spine. 2. Tiny left apical pneumothorax. The left lung is not imaged in its entirety. 3. Fractures of the left posterior 4th, 5th, 7th and 8th ribs 4. Bilateral renal calculi. Electronically signed by: Erma Dover On 12/31/2020 19:12:29 PM CXR IMPRESSION: Multiple displaced left-sided rib fractures. Subpleural and extra thoracic soft tissue swelling along the left lateral chest wall. Soft tissue emphysema implies barotrauma to the left lung. No pneumothorax visible on plain chest x-ray. <Electronically signed by Alvino Collier > 12/31/20 1844 XR femur IMPRESSION: 1. Focal in the cortex of the proximal/mid femur posteriorly. An area of smooth periosteal new bone formation seen in this area suggests this could be chronic. 2. Area of sclerosis in the intramedullary canal the proximal ower femur. Bone infarct among the diagnostic considerations. Electronically signed by: Erma Dover On 12/31/2020 21:39:51 PM CXR 01/06/21 COMPARISON: Comparison chest x-ray January 02, 2021. TECHNIQUE: Two views.. FINDINGS: Frontal and lateral views of the chest demonstrate increase in left pleural effusion opacifying the lower half of the left hemithorax. The soft tissue emphysema seen previously in the extra thoracic soft tissues is improved although not resolved. There is no visible pneumothorax. There is platelike atelectasis in the right lower lobe posteriorly. The right lung is otherwise clear. No right pleural effusion is noted. There are degenerative changes in the thoracic spine. The thoracic aorta is calcified. IMPRESSION: Increase, now moderate left pleural effusion evident. <Electronically signed by Alvino Collier > 01/06/21 0922 DISCHARGE PLAN: Discharge home DISCHARGE INSTRUCTIONS: Activity as tolerated Regular diet Continue to use incentive spirometry Call back to the office with increasing pain, shortness of breath, questions or concerns Avoid constipation with the use of pain medication. Senokot 1 tablet p.o. twice daily, milk of magnesia 30 mL daily as needed. Oxycodone 5 mg 1 to 2 tablets every 6 hours as needed. #24. I stop reference #[id number] Follow-up chest x-ray in 10 days Follow-up with Dr. Wang in the office 10 to 14 days, after chest x-ray completed to review results. ITEMS TO FOLLOWUP ON ON OUTPATIENT: Follow-up chest x-ray in 10 days DISCHARGE CONDITION: Stable. TIME SPENT ON DISCHARGE: Greater than 30 minutes. Vital Signs/I&Os Vital Signs Date Time Temp Pulse Resp B/P (MAP) Pulse Ox O2 Delivery O2 Flow Rate FiO2 01/06/21 14:00 90 Room Air 01/06/21 12:00 97.9 56 17 153/73 (99) I&O- Last 24 Hours up to 6 AM 01/06/21 05:59 Intake Total 720 ml Output Total 1350 ml Balance -630 ml Laboratory Data Labs 24H Item Value Date Time White Blood Count 8.9 10^3/uL 01/05/21 0516 Red Blood Count 3.52 10^6/uL L 01/05/21 0516 Hemoglobin 10.7 g/dl L 01/05/21 0516 Hematocrit 32.4 % L 01/05/21 0516 Mean Corpuscular Volume 92.0 fl 01/05/21 0516 Mean Corpuscular Hemoglobin 30.4 pg 01/05/21 0516 Mean Corpuscular Hemoglobin Concent 33.0 g/dl 01/05/21 0516 Red Cell Distribution Width 12.3 % 01/05/21 0516 Platelet Count 165 10^3/uL 01/05/21 0516 Sodium Level 137 MEQ/L 01/05/21 0516 Potassium Level 4.2 MEQ/L 01/05/21 0516 Chloride Level 103 MEQ/L 01/05/21 0516 Carbon Dioxide Level 29 MEQ/L 01/05/21 0516 Anion Gap 5 MEQ/L L 01/05/21 0516 Blood Urea Nitrogen 13 MG/DL 01/05/21 0516 Creatinine 0.73 MG/DL 01/05/21 0516 Glomerular Filtration Rate > 60.0 01/05/21 0516 Fasting Glucose 118 MG/DL H 01/05/21 0516 Calcium Level 7.9 MG/DL L 01/05/21 0516 Discharge Medications Scheduled Aspirin (Aspirin EC) 81 Mg Tablet.dr, 81 MG PO DAILY, (Reported) Folic Acid/Multivit-Min/Lutein (Multi-Vitamin Gummies) 1 Each Tab.chew, 2 CHW PO DAILY, (Reported) Irbesartan (Irbesartan) 300 Mg Tablet, 300 MG PO DAILY, (Reported) Metoprolol Tartrate (Metoprolol Tartrate) 25 Mg Tablet, 25 MG PO BID, (Reported) Pantoprazole Sodium (Pantoprazole Sodium) 40 Mg Tablet.dr, 40 MG PO DAILY, (Reported) Potassium Chloride (Potassium Chloride) 10 Meq Tablet.er, 10 MEQ PO BID, (Reported) Sennosides/Docusate Sodium (Senna Plus Tablet) 1 Each Tablet, 1 TAB PO BID dilTIAZem HCl (Diltiazem 24Hr Cd) 240 Mg Cap.er.24h, 240 MG PO DAILY, (Reported) Scheduled PRN Magnesium Hydroxide (Milk of Magnesia) 400 Mg/5 Ml Oral.susp, 30 ML PO DAILYPRN PRN for CONSTIPATION Oxycodone HCl (Oxycodone HCl) 5 Mg Tablet, 10 MG PO Q6HP PRN for SEVERE PAIN (PS 8-10) Pt can take 1-2 tab po Q6 hrs as needed. Allergies Coded Allergies: Penicillins (Verified Allergy, Severe, 12/31/20) anaphylaxis Sulfa (Sulfonamide Antibiotics) (Verified Allergy, Severe, 12/31/20) Anaphylaxis/Cardiac arrest doxylamine (Verified Allergy, Severe, 12/31/20) Cardiac Arrest sulbactam (Verified Allergy, Severe, 12/31/20) sulfamethoxazole (Verified Allergy, Severe, 12/31/20) trimethoprim (Verified Allergy, Severe, 12/31/20) Contrast Media (Verified Allergy, Unknown, 10/01/14) Thuy Mcdermott Jan 06, 2021 15:11
== END 2021-01-06 16:46 | disposition home or self-care (01) | DRG 964 ==
LOC: M ED 17:50 → EDBD 17:50 → M ED INP 20:16 → M PCU 22:40
PROVIDERS: ADMIT Surgery; ATTEND Surgery
PROC: 3E0R3NZ Introduction of Analgesics, Hypnotics, Sedatives into Spinal Canal, Percutaneous Approach (ICD-10-PCS; principal; 2021-01-01)
DX: S27.2XXA Traumatic hemopneumothorax, initial encounter (principal); S36.039A Unspecified laceration of spleen, initial encounter; S22.42XA Multiple fractures of ribs, left side, initial encounter for closed fracture; S36.113A Laceration of liver, unspecified degree, initial encounter; W55.82XA Struck by other mammals, initial encounter; Y92.89 Other specified places as the place of occurrence of the external cause; Y93.89 Activity, other specified; Y93.K9 Activity, other involving animal care; Y99.8 Other external cause status; S01.21XA Laceration without foreign body of nose, initial encounter; I25.10 Atherosclerotic heart disease of native coronary artery without angina pectoris; K42.9 Umbilical hernia without obstruction or gangrene; I10 Essential (primary) hypertension; E78.00 Pure hypercholesterolemia, unspecified; Z91.041 Radiographic dye allergy status; Z88.0 Allergy status to penicillin; Z88.2 Allergy status to sulfonamides; Z88.1 Allergy status to other antibiotic agents; Z79.82 Long term (current) use of aspirin; Z79.899 Other long term (current) drug therapy; Z95.5 Presence of coronary angioplasty implant and graft; Z87.442 Personal history of urinary calculi

== ENCOUNTER → 2021-01-16 | Outpatient (CLI) | payer MEDICARE ==
[~2021-01-16] MED LIST: ASPI-161 PO; ASPI81CH33 PO; DILT240C83 PO; IRBE300T7 PO; METO25TA4 PO; MOM30SS2 PO; MULTCHW12 PO; OXYC-517 PO; PANT40TA29 PO; POTA1TAB23 PO; SENN-52 PO
--- NOTE | 2021-01-16 12:42 | REP ---
INDICATION: MULTIPLE FRACTURES OF RIBS, LEFT SIDE, INIT FOR OPN FX COMPARISON: 12/17/2020 TECHNIQUE: PA and lateral. FINDINGS: Left lower lobe opacity is again identified and essentially unchanged suggesting large pleural effusion/hemothorax and associated lower lobe consolidation/atelectasis. Adjacent pleural thickening along the lateral aspect of the left upper lung zone may represent associated pleural fluid and is again unchanged. No obvious pneumothorax. Right hemithorax is relatively clear. Displaced left-sided rib fractures unchanged in appearance. IMPRESSION: No significant change to the left lung opacities suggesting effusion/hemothorax and atelectasis. <Electronically signed by Terence Osullivan > 01/16/21 [id number]
== END ==
LOC: M RAD 12:19
PROVIDERS: ATTEND Surgery
DX: S22.42XB Multiple fractures of ribs, left side, initial encounter for open fracture (principal); W18.30XD Fall on same level, unspecified, subsequent encounter; Y92.009 Unspecified place in unspecified non-institutional (private) residence as the place of occurrence of the external cause

== ENCOUNTER → 2021-01-26 | Outpatient (CLI) | payer MEDICARE ==
--- NOTE | 2021-01-26 11:28 | REP ---
INDICATION: ATELECTASIS, PLEURAL EFFUSION, MULTIPLE RIB FX LT. COMPARISON: None. TECHNIQUE: CT chest performed without the use of intravenous contrast. Sagittal and coronal reconstruction images are performed. FINDINGS: Lungs: Linear atelectatic changes are seen bilaterally, left greater than right. There is patchy atelectasis or infiltrate in the left lower lobe. Mediastinum: No gross adenopathy. Joann: No gross adenopathy. Axilla: No gross adenopathy. Pleura: There are calcified pleural plaques bilaterally. There is moderate left pleural effusion. Heart: Not enlarged. Thoracic aorta: No aneurysm. Upper abdominal structures: Centrally in the spleen there is an oval hypodense area measuring 3.1 x 1.8 cm most consistent with a splenic hematoma. There is a smaller hypodense area more superiorly and posteriorly in the spleen compatible with a small hematoma or laceration. The previously noted perisplenic hemorrhage has resolved. Visualized osseous structures: Once again noted are fractures of the left 3rd through 9th ribs.. IMPRESSION: Patchy atelectasis or infiltrate left lower lobe. Moderate left pleural effusion. Multiple left rib fractures again noted. Intrasplenic hematoma 3.1 x 1.8 cm. Small hematoma or laceration in the posterosuperior peripheral spleen. The previously noted perisplenic hemorrhage has resolved. <Electronically signed by Gume [place] > 01/26/21 [id number]
== END ==
LOC: M PLAIMG 09:39
PROVIDERS: ATTEND Surgery
DX: R91.8 Other nonspecific abnormal finding of lung field (principal); J98.11 Atelectasis; J91.8 Pleural effusion in other conditions classified elsewhere; S22.42XS Multiple fractures of ribs, left side, sequela

== ENCOUNTER → 2021-02-11 | Outpatient (CLI) | payer MEDICARE ==
--- NOTE | 2021-02-11 15:05 | REP ---
INDICATION: MULTIPLE FRACTURES OF RIBS, LEFT SIDE, SEQUELA. COMPARISON: None. TECHNIQUE: PA and lateral FINDINGS: Patchy left basilar opacities in left pleural effusion appears to have improved slightly. No new abnormal opacities have developed. Multiple left-sided rib fractures status quo. Cardiomediastinal silhouette status quo. IMPRESSION: Slight left lung improvement as described above. Follow-up is recommended. <Electronically signed by Michael Moore > 02/11/21 [id number]
== END ==
LOC: M RAD 14:35
PROVIDERS: ATTEND Surgery
DX: S22.42XS Multiple fractures of ribs, left side, sequela (principal); W18.30XS Fall on same level, unspecified, sequela; Y92.009 Unspecified place in unspecified non-institutional (private) residence as the place of occurrence of the external cause

== ENCOUNTER → 2021-04-06 | Outpatient (CLI) | payer MEDICARE | LOC: M RAD 14:32 | PROVIDERS: ATTEND Surgery | DX: S22.42XS Multiple fractures of ribs, left side, sequela (principal) ==

== ENCOUNTER → 2021-06-02 | Outpatient (CLI) | payer MEDICARE | LOC: M RAD 07:26 | PROVIDERS: ATTEND Surgery | DX: S22.42XS Multiple fractures of ribs, left side, sequela (principal); W18.30XS Fall on same level, unspecified, sequela ==

== ENCOUNTER → 2021-09-09 | Outpatient (CLI) | payer MEDICARE | LOC: M RAD 12:29 | PROVIDERS: ATTEND Internal Medicine Pulmonary Disease | DX: R94.2 Abnormal results of pulmonary function studies (principal) ==